=== PATIENT | female | born 1985 ===

== ENCOUNTER 2017-01-21 11:18 | Emergency (ER) | payer SELFPAY ==
[2017-01-21 11:33] VITALS: BP 133/93; PULSE 92; RESP 18; TEMP 97.8; O2SAT 100
[2017-01-21 13:11] LABS: HEMATOCRIT 40.3 % (34.0-47.0); MEAN CELL VOLUME 89.9 fl (81.0-99.0); MEAN CORPUSCULAR HEMOGLOBIN 30.9 pg (27.0-31.0); MEAN CORPUSCULAR HGB CONC 34.3 g/dL (33.0-37.0); RED CELL DISTRIBUTION WIDTH 12.6 % (11.5-14.5); WHITE BLOOD COUNT 4.7 K/uL (4.8-10.8)
[2017-01-21 13:14] LABS: ALB/GLOB RATIO 1.3 (1.0-2.1); ALKALINE PHOSPHATASE 67 U/L (38-126); ALT/SGPT 27 U/L (9-52); AST/SGOT 25 U/L (14-36); BILIRUBIN,TOTAL 0.8 mg/dl (0.2-1.3); BLOOD UREA NITROGEN 11 mg/dl (7-17); CALCIUM 9.7 mg/dL (8.4-10.2); CARBON DIOXIDE 25 mmol/L (22-30); CHLORIDE 103 mmol/L (98-107); GFR AFRICAN-AMERICAN > 60; GLUCOSE,RANDOM 90 mg/dL (65-105); POTASSIUM 3.8 MMOL/L (3.6-5.0); SODIUM 144 mmol/l (132-148); TOTAL PROTEIN 8.1 G/DL (6.3-8.2)
--- NOTE | 2017-01-21 13:59 | US ---
HISTORY: Pelvic pain. Menstrual status: Irregular cycles, LMP 01/11/2017. COMPARISON: None. TECHNIQUE: Transvaginal only. Real -time technique with 2D, duplex and color Doppler FINDINGS: UTERUS: Measures 8.1 x 5.0 cm. Normal in size and appearance. No fibroid or other mass lesion seen. ENDOMETRIUM: Measures 4.5 mm in diameter. No ultrasound findings to suggest gestational sac, fluid, debris, mass or polyp or other pathologic process within the endometrium. CERVIX: No cervical abnormality identified.Incidental finding: Nabothian cysts RIGHT OVARY: Measures 2.3 x 3.5 cm. No solid mass. Normal flow. Multiple subcentimeter follicles. LEFT OVARY: Measures 2.5 x 4.4 cm. No solid mass. Normal flow. Multiple subcentimeter follicles. FREE FLUID: No significant free fluid noted. OTHER FINDINGS: None. IMPRESSION: No significant or acute findings to account for/ related to the clinical presentation.
--- NOTE | 2017-01-21 14:24 | ED PDOC ---
HPI: Abdomen Time Seen by Provider: 01/21/17 11:27 Chief Complaint (Nursing): Abdominal Pain Chief Complaint (Provider): Abdominal pain for 2 weeks, no N/V/D History Per: Patient History/Exam Limitations: no limitations Onset/Duration Of Symptoms: Days Outside of [place] travel?: No Current Symptoms Are (Timing): Still Present Severity: Moderate Pain Scale Rating Of: 5 Location Of Pain/Discomfort: Suprapubic Quality Of Discomfort: Dull Associated Symptoms: denies: Fever, Chills, Nausea, Vomiting, Diarrhea, Loss Of Appetite, Back Pain, Chest Pain, Constipation, Urinary Symptoms Exacerbating Factors: None Alleviating Factors: None Last Bowel Movement: Today Additional Complaint(s): Pt states that she has no discharge, pain during intercourse, etc. Past Medical History Reviewed: Historical Data, Nursing Documentation, Vital Signs Vital Signs: Last Vital Signs Temp 97.8 F 01/21/17 11:25 Pulse 92 H 01/21/17 11:25 Resp 18 01/21/17 11:25 BP 133/93 H 01/21/17 11:25 Pulse Ox 100 01/21/17 11:25 - Medical History PMH: No Chronic Diseases, Gastritis - Surgical History Surgical History: No Surg Hx - Family History Family History: States: Unknown Family Hx - Living Arrangements Living Arrangements: With Family - Social History Current smoker - smoking cessation education provided: No - Home Medications Home Medications: Ambulatory Orders Medication Instructions Recorded Ibuprofen [Motrin Tab] 800 mg PO Q6H PRN #20 tab 01/21/17 - Allergies Allergies/Adverse Reactions: Allergies Allergy/AdvReac Type Severity Reaction Status Date / Time No Known Allergies Allergy Verified 01/21/17 11:25 Review of Systems ROS Statement: Except As Marked, All Systems Reviewed And Found Negative Gastrointestinal: Positive for: Abdominal Pain Physical Exam - Reviewed Nursing Documentation Reviewed: Yes Vital Signs Reviewed: Yes - Physical Exam Appears: Positive for: Well, Non-toxic, No Acute Distress Head Exam: Positive for: ATRAUMATIC, NORMAL INSPECTION, NORMOCEPHALIC Skin: Positive for: Normal Color, Warm, DRY Eye Exam: Positive for: Normal appearance ENT: Positive for: Normal ENT Inspection Neck: Positive for: Normal, Painless ROM Cardiovascular/Chest: Positive for: Regular Rate, Rhythm Respiratory: Positive for: Normal Breath Sounds. Negative for: Accessory Muscle Use Gastrointestinal/Abdominal: Positive for: Normal Exam, Bowel Sounds, Soft. Negative for: Tenderness, Guarding, Rebound Back: Positive for: Normal Inspection Extremity: Positive for: Normal ROM Neurologic/Psych: Positive for: Alert, Oriented - Laboratory Results Result Diagrams: 01/21/17 12:30 01/21/17 12:30 - ECG O2 Sat by Pulse Oximetry: 100 Pulse Ox Interpretation: Normal Disposition - Clinical Impression Clinical Impression: Abdominal pain - Patient ED Disposition Is Patient to be Admitted: No Counseled Patient/Family Regarding: Diagnosis, Need For Followup, Rx Given - Disposition Referrals: [facility] [Outside] Disposition: Routine/Home Disposition Time: 14:18 Condition: GOOD Prescriptions: Ibuprofen [Motrin Tab] 800 mg PO Q6H PRN #20 tab PRN Reason: Pain Instructions: Abdominal Pain (ED) Print Language: VATICAN CITIZEN
== END 2017-01-21 14:28 | disposition home or self-care (01) ==
LOC: H.ER 11:18
DX: R10.9 Unspecified abdominal pain (principal)

== ENCOUNTER 2017-04-30 09:50 | Emergency (ER) | payer OTHER ==
[2017-04-30 09:59] VITALS: BMI 21.1
[2017-04-30 10:01] VITALS: TEMP 98.1
--- NOTE | 2017-04-30 10:16 | ED PDOC ---
HPI: General Adult Time Seen by Provider: 04/30/17 10:15 Chief Complaint (Nursing): Headache Chief Complaint (Provider): chest pain History Per: Patient Additional Complaint(s): 32-year-old female with no past medical history presents to emergency department with five-day history of mid-sternal chest pain. Patient states pain does not radiate and is not associated with shortness of breath or dyspnea on exertion. Denies any coughing or congestion. No fever or chills. Patient also has had mild headache which is resolved by ibuprofen. Patient does have history of migraines. Patient admits to being under a lot of stress lately. She denies any suicidal or homicidal ideation. She rates current headache as a 5 out of 10 and she rates chest pain as 4/10. Patient did not take any meds for pain relief today. She denies any recent travel. Past Medical History Reviewed: Historical Data, Nursing Documentation, Vital Signs Vital Signs: Last Vital Signs Temp 98.1 F 04/30/17 09:58 Pulse 73 04/30/17 09:58 Resp 20 04/30/17 09:58 BP 126/83 04/30/17 09:58 Pulse Ox 100 04/30/17 10:58 - Medical History PMH: Gastritis, Migraine - Surgical History Surgical History: No Surg Hx - Family History Family History: States: No Known Family Hx - Living Arrangements Living Arrangements: With Family - Social History Current smoker - smoking cessation education provided: No Alcohol: None Drugs: Denies - Home Medications Home Medications: Ambulatory Orders Medication Instructions Recorded No Known Home Med 04/30/17 - Allergies Allergies/Adverse Reactions: Allergies Allergy/AdvReac Type Severity Reaction Status Date / Time No Known Allergies Allergy Verified 04/30/17 10:13 Review of Systems ROS Statement: Except As Marked, All Systems Reviewed And Found Negative Constitutional: Negative for: Fever, Chills Cardiovascular: Positive for: Chest Pain (x 5 days). Negative for: Palpitations Respiratory: Negative for: Cough, Shortness of Breath, SOB with Exertion, Wheezing Gastrointestinal: Negative for: Nausea, Vomiting Neurological: Positive for: Headache. Negative for: Dizziness Psych: Positive for: Anxiety. Negative for: Suicidal ideation Physical Exam - Reviewed Nursing Documentation Reviewed: Yes Vital Signs Reviewed: Yes - Physical Exam Appears: Positive for: Well, Non-toxic, No Acute Distress Head Exam: Positive for: ATRAUMATIC, NORMAL INSPECTION Skin: Negative for: Rash Eye Exam: Positive for: Normal appearance, EOMI, PERRL Cardiovascular/Chest: Positive for: Regular Rate, Rhythm Respiratory: Positive for: Normal Breath Sounds. Negative for: Wheezing Gastrointestinal/Abdominal: Positive for: Normal Exam, Soft. Negative for: Tenderness Extremity: Positive for: Normal ROM Neurologic/Psych: Positive for: Alert, Oriented - Laboratory Results Result Diagrams: 04/30/17 11:15 04/30/17 11:15 Urine POC: Negative - ECG Interpretation Of ECG: NSR 69 bpm, no acute finding, reviewed by food writer and ED attending O2 Sat by Pulse Oximetry: 100 Pulse Ox Interpretation: Normal - Other Rad CXR X-Ray: Interpreted by Me, Viewed By Me X-Ray Interpretation: no acute finding Medical Decision Making Medical Decision Makin32 year old with chest pain and headache Plan: EKG CXR CMP CBC Trop PO tylenol and motrin IVF Patient was offered crisis consult but she declined. She denies any suicidal or homicidal ideation. 12:30 pm: Patient states that headache and chest pain have resolved completely. Patient feels much better. Diagnostic test results were reviewed. Glucose on CMP is 43, repeat at bedside was 80. Patient is aware of all diagnostic testing results, all questions answered. Patient was advised to continue with ibuprofen for pain as needed. She was advised to follow up with primary doctor in 2-3 days and is aware she can return to ED at any time if acutely worse. Disposition - Clinical Impression Clinical Impression: Headache, Atypical chest pain - Patient ED Disposition Is Patient to be Admitted: No Counseled Patient/Family Regarding: Studies Performed, Diagnosis, Need For Followup - Disposition Referrals: [facility] [Outside] Disposition: Routine/Home Disposition Time: 12:57 Condition: IMPROVED Additional Instructions: Take 3 ibuprofen every 6hrs for pain relief as needed. Rest and drink plenty of fluids. Follow up with primary care doctor in 2-3 days or return any time if acutely worse. Instructions: General Headache (ED), Chest Pain (ED) Print Language: ALGERIAN Results - Lab Results Lab Results: 04/30/17 04/30/17 11:15 11:15 WBC 5.1 RBC 4.54 Hgb 13.8 Hct 41.3 MCV 90.9 MCH 30.4 MCHC 33.4 RDW 12.6 Plt Count 166 MPV 9.7 Neut % (Auto) 59.1 Lymph % (Auto) 30.4 [place] % (Auto) 7.4 Eos % (Auto) 1.9 Baso % (Auto) 1.2 Neut # 3.0 Lymph # 1.6 [place] # 0.4 Eos # 0.1 Baso # 0.1 Sodium 143 Potassium 3.7 Chloride 106 Carbon Dioxide 25 Anion Gap 15 BUN 17 Creatinine 0.6 L Est GFR ( Amer) > 60 Est GFR (Non-Af Amer) > 60 Random Glucose 43 L Calcium 9.3 Total Bilirubin 0.6 AST 28 ALT 40 Alkaline Phosphatase 58 Troponin I < 0.0120 Total Protein 8.0 Albumin 4.6 Globulin 3.4 Albumin/Globulin Ratio 1.3
[2017-04-30] MEDS ORDERED: Sodium Chloride 0.9% 1,000 ML IV STA (10:53)
[2017-04-30 11:32] LABS: BASO # 0.1 K/uL (0.0-0.2); BASO % 1.2 % (0.0-2.0); EOS # 0.1 K/uL (0.0-0.7); EOS % 1.9 % (0.0-4.0); HEMATOCRIT 41.3 % (34.0-47.0); LYMPH # 1.6 K/uL (1.0-4.3); LYMPH % 30.4 % (20.0-40.0); MEAN CELL VOLUME 90.9 fl (81.0-99.0); MEAN CORPUSCULAR HEMOGLOBIN 30.4 pg (27.0-31.0); MEAN CORPUSCULAR HGB CONC 33.4 g/dL (33.0-37.0); MEAN PLATELET VOLUME 9.7 fl (7.2-11.7); MONO # 0.4 K/uL (0.0-0.8); MONO % 7.4 % (0.0-10.0); NEUT % 59.1 % (50.0-75.0); NRBC % 0.1 % (0.0-0.0); RED CELL DISTRIBUTION WIDTH 12.6 % (11.5-14.5); WHITE BLOOD COUNT 5.1 K/uL (4.8-10.8)
[2017-04-30 11:53] LABS: ALB/GLOB RATIO 1.3 (1.0-2.1); ALKALINE PHOSPHATASE 58 U/L (38-126); ALT/SGPT 40 U/L (9-52); AST/SGOT 28 U/L (14-36); BILIRUBIN,TOTAL 0.6 mg/dl (0.2-1.3); BLOOD UREA NITROGEN 17 mg/dl (7-17); CALCIUM 9.3 mg/dL (8.4-10.2); CARBON DIOXIDE 25 mmol/L (22-30); CHLORIDE 106 mmol/L (98-107); GFR AFRICAN-AMERICAN > 60; GLUCOSE,RANDOM 43 mg/dL (65-105); POTASSIUM 3.7 MMOL/L (3.6-5.0); SODIUM 143 mmol/l (132-148)
--- NOTE | 2017-04-30 13:13 | RAD ---
HISTORY: clearance COMPARISON: 02/19/2011 FINDINGS: LUNGS: No active pulmonary disease. PLEURA: No significant pleural effusion identified, no pneumothorax apparent. CARDIOVASCULAR: Normal. OSSEOUS STRUCTURES: No significant abnormalities. VISUALIZED UPPER ABDOMEN: Normal. OTHER FINDINGS: None. IMPRESSION: No active disease.
[2017-04-30 13:24] VITALS: BP 106/61; PULSE 79; RESP 18; O2SAT 99
--- NOTE | 2017-04-30 16:58 | CARD ---
APPROVED REPORT EKG Measurement Heart [id number] <Conclusion> Normal sinus rhythm with sinus arrhythmia Normal ECG
== END 2017-04-30 13:24 | disposition home or self-care (01) ==
LOC: H.ER 09:50
DX: R51 Headache (principal); R07.89 Other chest pain

== ENCOUNTER 2018-06-20 10:08 | Emergency (ER) | payer OTHER ==
[2018-06-20 10:18] VITALS: BMI 22.3
--- NOTE | 2018-06-20 10:50 | ED PDOC ---
HPI: Abdomen Time Seen by Provider: 06/20/18 10:27 Chief Complaint (Nursing): Abdominal Pain Chief Complaint (Provider): abd pain History Per: Patient Additional Complaint(s): 33-year-old female presents with generalized abdominal pain ongoing for about 1 week. No associated nausea, vomiting, diarrhea or constipation. Patient denies any dysuria, vaginal bleeding or vaginal discharge. She has history of irregular menses and thinks that she may be getting her period but is also concerned about possible . Patient also reports history of gastritis but states that she was started on Nexium 4 days ago which seems to be helping. PMD: Clinic in [place] Past Medical History Reviewed: Historical Data, Nursing Documentation, Vital Signs Vital Signs: Last Vital Signs Temp 98.2 F 06/20/18 10:16 Pulse 66 06/20/18 10:16 Resp 20 06/20/18 10:16 BP 112/69 06/20/18 10:16 Pulse Ox 100 06/20/18 10:50 - Medical History PMH: Gastritis, Migraine - Surgical History Surgical History: No Surg Hx - Family History Family History: States: No Known Family Hx - Living Arrangements Living Arrangements: With Family - Social History Current smoker - smoking cessation education provided: No Alcohol: None Drugs: Denies - Home Medications Home Medications: Ambulatory Orders Medication Instructions Recorded No Known Home Med 04/30/17 - Allergies Allergies/Adverse Reactions: Allergies Allergy/AdvReac Type Severity Reaction Status Date / Time No Known Allergies Allergy Verified 04/30/17 10:13 Review of Systems ROS Statement: Except As Marked, All Systems Reviewed And Found Negative Constitutional: Negative for: Fever, Chills Cardiovascular: Negative for: Chest Pain Respiratory: Negative for: Cough Gastrointestinal: Positive for: Abdominal Pain. Negative for: Nausea, Vomiting , Diarrhea Genitourinary Female: Negative for: Dysuria, Frequency, Vaginal Discharge, Vaginal Bleeding Physical Exam - Reviewed Nursing Documentation Reviewed: Yes Vital Signs Reviewed: Yes - Physical Exam Appears: Positive for: Well, Non-toxic, No Acute Distress Skin: Positive for: Normal Color. Negative for: Rash Eye Exam: Positive for: Normal appearance Cardiovascular/Chest: Positive for: Regular Rate, Rhythm Respiratory: Positive for: Normal Breath Sounds. Negative for: Wheezing, Respiratory Distress Gastrointestinal/Abdominal: Positive for: Soft. Negative for: Tenderness, Distended, Guarding, Rebound Back: Negative for: L CVA Tenderness, R CVA Tenderness Extremity: Positive for: Normal ROM Neurologic/Psych: Positive for: Alert, Oriented - Laboratory Results Urine POC: Negative Urine dip results: Negative for: Leukocyte Esterase, Blood, Nitrate, Ketones, Glucose, Bilirubin, Protein - ECG O2 Sat by Pulse Oximetry: 100 Pulse Ox Interpretation: Normal Medical Decision Making Medical Decision Makin-year-old female with generalized abdominal pain. Abdominal exam is benign. Patient is afebrile, well appearing, in no distress. Plan: Urine dip Urine preg Urine culture sent CHL/GC culture sent Patient with generalized abdominal pain ongoing for 1 week. She has history of gastritis and irregular menses. Patient was instructed to follow-up women's clinic and continue with Nexium as prescribed. Patient made aware she can return to emergency room any time for acutely worsening symptoms. Disposition - Clinical Impression Clinical Impression: Abdominal pain in female, Gastritis, Irregular menses - Patient ED Disposition Is Patient to be Admitted: No Counseled Patient/Family Regarding: Studies Performed, Diagnosis, Need For Followup - Disposition [facility]errals[facility] [[facility]] Disposition: Routine/Home Disposition Time: 11:12 Condition: STABLE Additional Instructions: Continue with Nexium as prescribed. Contact women's clinic to arrange for appointment for further evaluation of irregular menstruation. 10 to emergency room any time if acutely worse. Instructions: Gastritis, Stomach Ache and Stomach Upset, Absent or Irregular Periods, Ulcer and Gastritis Diet Forms: [employer] (Yakut)
[2018-06-20 11:29] VITALS: BP 127/78; PULSE 78; RESP 19; TEMP 97; O2SAT 98
== END 2018-06-20 11:31 | disposition home or self-care (01) ==
LOC: H.ER 10:08
DX: K29.70 Gastritis, unspecified, without bleeding (principal); N92.6 Irregular menstruation, unspecified

== ENCOUNTER 2018-06-23 01:21 | Emergency (ER) | payer OTHER ==
[2018-06-23 01:21] VITALS: BMI 22.3
[2018-06-23 01:55] VITALS: TEMP 98.5
[2018-06-23] MEDS ORDERED: Sodium Chloride 0.9% 1,000 ML IV STA (02:46)
[2018-06-23] MEDS ORDERED: Iohexol 240 (50 ml) ONE (02:56)
[2018-06-23 03:24] LABS: BASO % 0.6 % (0.0-2.0); EOS # 0.2 K/uL (0.0-0.7); EOS % 2.2 % (0.0-4.0); HEMOGLOBIN 13.3 g/dL (12.0-16.0); LYMPH # 1.4 K/uL (1.0-4.3); LYMPH % 19.2 % (20.0-40.0); MEAN CELL VOLUME 87.8 fl (81.0-99.0); MEAN CORPUSCULAR HEMOGLOBIN 31.5 pg (27.0-31.0); MEAN CORPUSCULAR HGB CONC 35.9 g/dL (33.0-37.0); MEAN PLATELET VOLUME 10.2 fl (7.2-11.7); MONO # 0.6 K/uL (0.0-0.8); MONO % 8.1 % (0.0-10.0); NEUT # 5.1 K/uL (1.8-7.0); NEUT % 69.9 % (50.0-75.0); RBC 4.21 Mil/uL (3.80-5.20); RED CELL DISTRIBUTION WIDTH 12.8 % (11.5-14.5); WHITE BLOOD COUNT 7.3 K/uL (4.8-10.8)
[2018-06-23 03:33] LABS: ALB/GLOB RATIO 1.3 (1.0-2.1)
[2018-06-23 03:42] LABS: ALBUMIN 4.2 g/dL (3.5-5.0); ALT/SGPT 21 U/L (9-52); AST/SGOT 26 U/L (14-36); BLOOD UREA NITROGEN 10 mg/dl (7-17); CALCIUM 9.1 mg/dL (8.4-10.2); GFR AFRICAN-AMERICAN > 60; GFR NON-AFRICAN AMERICAN > 60
--- NOTE | 2018-06-23 04:10 | ED PDOC ---
HPI: Abdomen Time Seen by Provider: 06/23/18 02:09 Chief Complaint (Nursing): Abdominal Pain Chief Complaint (Provider): Abdominal Pain History Per: Patient History/Exam Limitations: no limitations Onset/Duration Of Symptoms: Days (x5) Current Symptoms Are (Timing): Still Present Additional Complaint(s): 33 year old female presents to the ED for right lower quadrant abdominal pain for five days. Patient states she was seen here four days ago for similar pain in her lower abdomen, and the pain came back after discharge. She is expressing concerns about her appendix. Otherwise: (-) nausea, (-) vomiting, (-) diarrhea, (-) urinary symptoms, (-) fever, (-) melena, (-) hematochezia, (-) vaginal d/c, (-) vaginal bleeding. Has no history of prior abdominal surgery. PMD: [facility] Past Medical History Reviewed: Historical Data, Nursing Documentation, Vital Signs Vital Signs: Last Vital Signs Temp 98.5 F 06/23/18 09:33 Pulse 72 06/23/18 09:33 Resp 18 06/23/18 09:33 BP 126/86 06/23/18 09:33 Pulse Ox 97 06/23/18 10:49 - Medical History PMH: Gastritis, Migraine - Surgical History Surgical History: No Surg Hx - Family History Family History: States: Unknown Family Hx - Social History Current smoker - smoking cessation education provided: No Alcohol: None Drugs: Denies - Home Medications Home Medications: Ambulatory Orders Medication Instructions Recorded Naproxen [Naprosyn] 500 mg PO Q12H #20 tab 06/23/18 - Allergies Allergies/Adverse Reactions: Allergies Allergy/AdvReac Type Severity Reaction Status Date / Time No Known Allergies Allergy Verified 04/30/17 10:13 Review of Systems ROS Statement: Except As Marked, All Systems Reviewed And Found Negative Constitutional: Negative for: Fever Gastrointestinal: Positive for: Abdominal Pain (RLQ). Negative for: Nausea, Vomiting, Diarrhea, Melena, Hematochezia Genitourinary Female: Negative for: Dysuria, Frequency, Incontinence Physical Exam - Reviewed Nursing Documentation Reviewed: Yes Vital Signs Reviewed: Yes - Physical Exam Comments: GENERAL APPEARANCE: Patient is awake, alert, oriented x 3, in no acute distress. SKIN: Warm, dry; (-) cyanosis. EYES: (-) conjunctival pallor, (-) scleral icterus. ENMT: Mucous membranes moist. NECK: (-) tenderness, (-) stiffness, (-) lymphadenopathy. CHEST AND RESPIRATORY: (-) rales, (-) rhonchi, (-) wheezes; breath sounds equal bilaterally. HEART AND CARDIOVASCULAR: (-) irregularity; (-) murmur, (-) gallop. ABDOMEN AND GI: (-) distention. Bowel sounds active; mild tenderness in RLQ. ( -) guarding, (-) rebound, (-) palpable masses, (-) CVA tenderness. EXTREMITIES: (-) deformity, (-) edema, (+) distal pulses. NEURO AND PSYCH: Mental status as above; (-) focal findings. - Laboratory Results Result Diagrams: 06/23/18 03:00 06/23/18 03:00 - ECG O2 Sat by Pulse Oximetry: 100 (RA) Pulse Ox Interpretation: Normal Medical Decision Making Medical Decision Making: Time: 02:46 Initial Impression: abdominal pain Initial Plan: --Abd/Pelvis CT PO and IV contrast --CMP --Lipase --Urine --Urine dipstick --CBC with differential --Normal saline IV --Toradol 30 mg IVP 0400 Labs reviewed : wnl, uhcg (-), udip (-) On re-evaluation, patient reports pain is controlled, denies any nausea. On exam , patient remains AAOx3, in no acute distress. Patient tolerating po contrast. 0600 Patient reports improvement of pain, has no other complaints at this time. CT being read, results still pending. Scribe Attestation: Documented by Maia Jackson, acting as a scribe for Nazia Scott PA-C. Provider Scribe Attestation: All medical record entries made by the Scribe were at my direction and personally dictated by me. I have reviewed the chart and agree that the record accurately reflects my personal performance of the history, physical exam, medical decision making, and the department course for this patient. I have also personally directed, reviewed, and agree with the discharge instructions and disposition. Disposition - Clinical Impression Clinical Impression: Abdominal pain, Ovarian cyst Counseled Patient/Family Regarding: Studies Performed, Diagnosis - Disposition [facility] [[facility]] Disposition Time: 06:00 Condition: FAIR Prescriptions: Naproxen [Naprosyn] 500 mg PO Q12H #20 tab Instructions: Ovarian Cysts Forms: [employer] [facility] (Ivorian) Print Language: WELSH
[2018-06-23] MEDS ORDERED: Iohexol 300 100 ML IJ ONE (04:54)
[2018-06-23] MEDS ORDERED: Sodium Chloride 0.9% 50 ML IV ONE (04:54)
[2018-06-23 06:44] LABS: LIPASE < 100 U/L (23-300)
[2018-06-23 09:34] VITALS: BP 126/86; PULSE 72; RESP 18
--- NOTE | 2018-06-23 10:49 | ED PDOC ---
- Laboratory Results Result Diagrams: 06/23/18 03:00 06/23/18 03:00 - ECG O2 Sat by Pulse Oximetry: 97 - Progress Re-evaluation Time: 10:47 Condition: Improved Disposition - Clinical Impression Clinical Impression: Abdominal pain, Ovarian cyst - POA Present On Arrival: None - Disposition [facility]errals: [facility] [[facility]] Disposition: Routine/Home Disposition Time: 10:48 Condition: FAIR Prescriptions: Naproxen [Naprosyn] 500 mg PO Q12H #20 tab Instructions: Ovarian Cysts Forms: [facility] (Irish) Print Language: SAMI
--- NOTE | 2018-06-23 11:34 | CT ---
Date of service: 06/23/2018 PROCEDURE: CT Abdomen and Pelvis with contrast HISTORY: RLQ pain COMPARISON: 07/24/2014. CT abdomen and pelvis. TECHNIQUE: Contrast dose: 90 cc Omnipaque 300 Radiation dose: Total exam DLP = 275.68 mGy-cm. This CT exam was performed using one or more of the following dose reduction techniques: Automated exposure control, adjustment of the mA and/or kV according to patient size, and/or use of iterative reconstruction technique. FINDINGS: LOWER THORAX: Unremarkable. LIVER: Unremarkable. No gross lesion or ductal dilatation. GALLBLADDER AND BILE DUCTS: Unremarkable. PANCREAS: Unremarkable. No gross lesion or ductal dilatation. SPLEEN: Unremarkable. ADRENALS: Unremarkable. No mass. KIDNEYS AND URETERS: Unremarkable. No hydronephrosis. No solid mass. VASCULATURE: Unremarkable. No aortic aneurysm. BOWEL: Unremarkable. No obstruction. No gross mural thickening. APPENDIX: Normal appendix. PERITONEUM: Unremarkable. No free fluid. No free air. LYMPH NODES: Unremarkable. No enlarged lymph nodes. BLADDER: Unremarkable. REPRODUCTIVE: Pelvic cyst 5.8 x 6.7 cm. Finding confirmed as adnexal in origin on follow-up pelvic ultrasound. BONES: No acute fracture. OTHER FINDINGS: None. IMPRESSION: Pelvic/right adnexal cyst. Otherwise, No significant or acute findings to account for/ related to the clinical presentation. Concordant results (preliminary interpretation) provided by [email or web address]. Procedure Completed: 05:14. Preliminary ([facility]) Report: Dictated and Authenticated: 06:21. Final Interpretation: 11:32. June 23, 2018.
--- NOTE | 2018-06-23 11:43 | US ---
Date of service: 06/23/2018 HISTORY: complex adnexal cyst LMP 2 months ago. COMPARISON: 01/21/2017 pelvic ultrasound. June 23, 2018. CT abdomen and pelvis TECHNIQUE: Transabdominal, transvaginal. Real -time technique with 2D, duplex and color Doppler. FINDINGS: UTERUS: Measures 3.7 x 6.5 x 10.6 cm. Normal in size and appearance. No fibroid or other mass lesion seen. ENDOMETRIUM: Measures 6.8 mm in diameter. No ultrasound findings to suggest gestational sac, fluid, debris, mass or polyp or other pathologic process within the endometrium. CERVIX: No cervical abnormality identified. RIGHT OVARY: Measures 2.3 x 4.3 x 3.5 cm. No solid mass. Normal flow. Simple cyst 4.5 x 4.8 x 6.5 LEFT OVARY: Measures 2 x 2.2 x 4 cm. No solid mass. Normal flow. Multiple subcentimeter follicles. FREE FLUID: No significant free fluid noted. OTHER FINDINGS: None. IMPRESSION: Simple cyst right adnexa. This corresponds to findings on recent CT scan. Otherwise unremarkable study.
[2018-06-24 14:27] VITALS: O2SAT 100
== END 2018-06-23 10:59 | disposition home or self-care (01) ==
LOC: H.ER 01:21
DX: N83.201 Unspecified ovarian cyst, right side (principal); R10.2 Pelvic and perineal pain
CPT/HCPCS: 74177; 76830; 76856; 80053; 81025; 83690; 85025; 96374; 99285; J1885; J7030; Q9967

== ENCOUNTER 2019-01-25 18:31 | Emergency (ER) | payer SELFPAY ==
[2019-01-25 18:32] VITALS: BMI 22.3
[2019-01-25 19:05] VITALS: PULSE 94; RESP 16; TEMP 98.5; O2SAT 98
--- NOTE | 2019-01-25 20:27 | ED PDOC ---
HPI: CCC, URI, Sore Throat Time Seen by Provider: 01/25/19 19:16 Chief Complaint (Nursing): ENT Problem Chief Complaint (Provider): ENT Problem History Per: Patient History/Exam Limitations: no limitations Onset/Duration Of Symptoms: Days Current Symptoms Are (Timing): Still Present Location Of Pain: Throat Sick Contacts (Context): Family Member(s) Additional Complaint(s): 33 y/o female with no significant PMHx presents to the ED for evaluation of a sore throat, onset two days ago. Patient reports sore throat is associated with right sided neck swelling and right eye redness with a discharge. Patient states pain in throat is worse with swallowing. Otherwise, patient denies taking any medications for symptom relief and fevers. Of note, patient has had positive sick contacts with son who was diagnosed with strep and flu. Patient additionally reports of developing a non-productive cough associated with mild nasal congestion. PMD: [place]. Past Medical History Reviewed: Historical Data, Nursing Documentation, Vital Signs Vital Signs: Last Vital Signs Temp 98.5 F 01/25/19 19:02 Pulse 94 H 01/25/19 19:02 Resp 16 01/25/19 19:02 BP Pulse Ox 98 01/25/19 19:02 - Medical History PMH: Gastritis, Migraine - Surgical History Surgical History: No Surg Hx - Family History Family History: States: No Known Family Hx - Social History Current smoker - smoking cessation education provided: No - Home Medications Home Medications: Ambulatory Orders Medication Instructions Recorded Naproxen [Naprosyn] 500 mg PO Q12H #20 tab 06/23/18 Amoxicillin/Clavulanate [Augmentin 1 tab PO BID #14 tab 01/25/19 875 MG-125 MG] Ibuprofen [Motrin Tab] 600 mg PO Q8 PRN #30 tab 01/25/19 Polymyxin/Trimethoprim Sulfate 2 drop OD TID #10 bottle 01/25/19 [Polytrim Ophth Soln] - Allergies Allergies/Adverse Reactions: Allergies Allergy/AdvReac Type Severity Reaction Status Date / Time No Known Allergies Allergy Verified 04/30/17 10:13 Review of Systems ROS Statement: Except As Marked, All Systems Reviewed And Found Negative (as per HPI) Constitutional: Negative for: Fever Eyes: Positive for: Redness (right eye redness with discharge) ENT: Positive for: Nose Congestion, Throat Pain Respiratory: Positive for: Cough Musculoskeletal: Positive for: Neck Pain (RIGHT SIDED NECK SWELLING) Physical Exam - Reviewed Nursing Documentation Reviewed: Yes Vital Signs Reviewed: Yes - Physical Exam Appears: Positive for: No Acute Distress Head Exam: Positive for: ATRAUMATIC, NORMOCEPHALIC Skin: Positive for: Warm, Dry Eye Exam: Positive for: EOMI, PERRL, Conjunctival injection (red with no discharge and tears noted. ) ENT: Positive for: Pharyngeal Erythema (mild ). Negative for: Tonsillar Exudate Neck: Positive for: Painless ROM, Supple Cardiovascular/Chest: Positive for: Regular Rate, Rhythm. Negative for: Murmur Respiratory: Positive for: Normal Breath Sounds. Negative for: Respiratory Distress Gastrointestinal/Abdominal: Positive for: Soft. Negative for: Tenderness Back: Positive for: Normal Inspection. Negative for: Muscle Spasm Extremity: Positive for: Normal ROM. Negative for: Deformity Lymphatic: Positive for: Adenopathy (large right anterior lymphadenopathy.) Neurologic/Psych: Positive for: Alert. Negative for: Motor/Sensory Deficits - ECG O2 Sat by Pulse Oximetry: 98 (RA) Pulse Ox Interpretation: Normal Medical Decision Making Medical Decision Making: Time: 2012 Impression: Pharyngitis with recent Strep exposure, possible conjunctivitis Plan: -- Will prescribe antibiotics -- Motrin 600 mg PO -- Tylenol 976 mg PO Scribe Attestation: Documented by Rosalva Butler, acting as a scribe for Margarita Patel MD. Provider Scribe Attestation: All medical record entries made by the Scribe were at my direction and personally dictated by me. I have reviewed the chart and agree that the record accurately reflects my personal performance of the history, physical exam, medical decision making, and the department course for this patient. I have also personally directed, reviewed, and agree with the discharge instructions and disposition. Disposition - Clinical Impression Clinical Impression: Pharyngitis, Lymphadenopathy of right cervical region Counseled Patient/Family Regarding: Diagnosis, Need For Followup, Rx Given - Disposition Referrals: Rickie Vance [Outside] Disposition: Routine/Home Disposition Time: 20:00 Condition: STABLE Additional Instructions: [facility]ISITA [facility] EN 2-3 [facility] A [facility] Prescriptions: Amoxicillin/Clavulanate [Augmentin 875 MG-125 MG] 1 tab PO BID #14 tab Ibuprofen [Motrin Tab] 600 mg PO Q8 PRN #30 tab PRN Reason: Pain, Moderate (4-7) Polymyxin/Trimethoprim Sulfate [Polytrim Ophth Soln] 2 drop OD TID #10 bottle Instructions: Sore Throat, Adult (DC), Conjunctivitis ([place]) (DC), Lymphadenitis (DC) Forms: [facility] ED School/Work Excuse Print Language: GEORGIAN
== END 2019-01-25 21:13 | disposition home or self-care (01) ==
LOC: H.ER 18:31
DX: J02.9 Acute pharyngitis, unspecified (principal); R59.1 Generalized enlarged lymph nodes

== ENCOUNTER 2019-03-12 17:01 | Emergency (ER) | payer OTHER ==
[2019-03-12 17:14] VITALS: TEMP 97.9; BMI 23.8
[2019-03-12] MEDS ORDERED: DiphenhydrAMINE 50 mg/ml Inj IVP STA (18:50)
[2019-03-12] MEDS ORDERED: Sodium Chloride 0.9% 1,000 ML IV STA (18:50)
[2019-03-12 19:22] LABS: BASO # 0.1 K/uL (0.0-0.2); BASO % 1.1 % (0.0-2.0); EOS # 0.6 K/uL (0.0-0.7); EOS % 8.4 % (0.0-4.0); HEMOGLOBIN 13.1 g/dL (12.0-16.0); LYMPH # 1.9 K/uL (1.0-4.3); LYMPH % 28.4 % (20.0-40.0); MEAN CELL VOLUME 90.5 fl (81.0-99.0); MEAN CORPUSCULAR HEMOGLOBIN 31.1 pg (27.0-31.0); MEAN CORPUSCULAR HGB CONC 34.3 g/dL (33.0-37.0); MEAN PLATELET VOLUME 9.5 fl (7.2-11.7); MONO # 0.4 K/uL (0.0-0.8); MONO % 6.6 % (0.0-10.0); NEUT # 3.6 K/uL (1.8-7.0); NEUT % 55.5 % (50.0-75.0); NRBC % 0.2 % (0.0-0.0); RBC 4.2 Mil/uL (3.80-5.20); RED CELL DISTRIBUTION WIDTH 13.1 % (11.5-14.5); WHITE BLOOD COUNT 6.6 K/uL (4.8-10.8)
[2019-03-12 19:36] LABS: ALB/GLOB RATIO 1.2 (1.0-2.1); ALBUMIN 4.1 g/dL (3.5-5.0); ALT/SGPT 21 U/L (9-52); AST/SGOT 25 U/L (14-36); BLOOD UREA NITROGEN 9 mg/dl (7-17); CALCIUM 8.8 mg/dL (8.4-10.2); GFR NON-AFRICAN AMERICAN > 60
--- NOTE | 2019-03-12 19:40 | ED PDOC ---
HPI: Headache Time Seen by Provider: 03/12/19 17:39 Chief Complaint (Nursing): Headache Chief Complaint (Provider): Headache History Per: Patient History/Exam Limitations: no limitations Onset/Duration Of Symptoms: Days (X2 weeks) Current Symptoms Are (Timing): Still Present Additional Complaint(s): 33 year old female with a past medical history of migraines presents to the ED with a headache onset X2 weeks ago. Patient states that her headaches have started X2 weeks ago but have become more severe in the last two days. Patient states that her headaches are pressure like, and diffused. She reports that they are similar to her previous headaches. Patient was diagnosed with migraines in the past. Patient has been taking Ibuprofen with minimal relief. Patient states that she has been under a lot of stress due to moving out of her apartment quickly. Patient states that her left eyelid has been twitching. Patient denies focal weakness, numbness, difficulty with speech, difficulty with gait, and blurry vision. PMD: None provided Past Medical History Reviewed: Historical Data, Nursing Documentation, Vital Signs Vital Signs: Last Vital Signs Temp 97.9 F 03/12/19 17:13 Pulse 73 03/12/19 17:13 Resp 18 03/12/19 17:13 BP 149/100 H 03/12/19 17:13 Pulse Ox 99 03/12/19 17:13 DERECK Report Viewed: Yes - Medical History PMH: Gastritis, Migraine - Surgical History Surgical History: No Surg Hx - Family History Family History: States: No Known Family Hx - Social History Current smoker - smoking cessation education provided: No Alcohol: None Drugs: Denies - Home Medications Home Medications: Ambulatory Orders Medication Instructions Recorded Naproxen [Naprosyn] 500 mg PO Q12H #20 tab 06/23/18 Amoxicillin/Clavulanate [Augmentin 1 tab PO BID #14 tab 01/25/19 875 MG-125 MG] Ibuprofen [Motrin Tab] 600 mg PO Q8 PRN #30 tab 01/25/19 Polymyxin/Trimethoprim Sulfate 2 drop OD TID #10 bottle 01/25/19 [Polytrim Ophth Soln] Naproxen [Naprosyn] 1 tab PO BID PRN #30 tab 03/12/19 - Allergies Allergies/Adverse Reactions: Allergies Allergy/AdvReac Type Severity Reaction Status Date / Time No Known Allergies Allergy Verified 03/12/19 17:11 Review of Systems ROS Statement: Except As Marked, All Systems Reviewed And Found Negative Eyes: Positive for: Other (left eyelid twitching). Negative for: Vision Change (blurry vision) Neurological: Positive for: Headache (diffused, pressure like ). Negative for: Weakness (focal ), Numbness, Change in Speech, Other (difficulty with gait) Physical Exam - Reviewed Nursing Documentation Reviewed: Yes Vital Signs Reviewed: Yes - Physical Exam Appears: Positive for: Well, In Acute Distress (mild painful distress) Head Exam: Positive for: ATRAUMATIC, NORMOCEPHALIC Skin: Positive for: Warm, Dry Eye Exam: Positive for: EOMI, PERRL ENT: Negative for: Pharyngeal Erythema, Tonsillar Exudate Neck: Positive for: Painless ROM, Supple Cardiovascular/Chest: Positive for: Regular Rate, Rhythm. Negative for: Murmur Respiratory: Positive for: Normal Breath Sounds. Negative for: Respiratory Distress Gastrointestinal/Abdominal: Positive for: Soft. Negative for: Tenderness Back: Positive for: Normal Inspection. Negative for: Decreased ROM Extremity: Positive for: Normal ROM. Negative for: Deformity Lymphatic: Negative for: Adenopathy Neurological/Psych: Positive for: Awake, Alert, Oriented (X3), Other (normal speech). Negative for: Motor/Sensory Deficits, Facial Droop - Laboratory Results Result Diagrams: 03/12/19 19:19 03/12/19 19:19 - ECG O2 Sat by Pulse Oximetry: 99 (RAQ) Pulse Ox Interpretation: Normal - Progress Re-evaluation Time: 20:00 Condition: Improved Medical Decision Making Medical Decision Making: Time: 17:39 Initial Impression: Headache Differential includes migraine, stress, anxiety and dehydration Plan: -complete metabolic panel -Ed Urine dipstick -ED Urine -CBC with differential -Benadryl 25 mg IVP -Sodium chloride 0.9% 1,000 ml IV -Reglan 10 mg IVP -Toradol 15 mg IM -Tylenol 975 mg PO -IV insertion -re-evaluate Labs unremarkable. Pt feels better. DW pt findings. Stable for discharge. Scribe Attestation: Documented by Zelalem Rollins, acting as a scribe for Margarita Patel MD Provider Scribe Attestation: All medical record entries made by the Scribe were at my direction and personally dictated by me. I have reviewed the chart and agree that the record accurately reflects my personal performance of the history, physical exam, medical decision making, and the department course for this patient. I have also personally directed, reviewed, and agree with the discharge instructions and disposition Disposition - Clinical Impression Clinical Impression: Headache Counseled Patient/Family Regarding: Studies Performed, Diagnosis - Disposition Disposition: Routine/Home Disposition Time: 20:00 Condition: IMPROVED Prescriptions: Naproxen [Naprosyn] 1 tab PO BID PRN #30 tab PRN Reason: Headache Instructions: Migraine Headache (DC), Stress Print Language: MONGOLIAN
[2019-03-12] MEDS ORDERED: DiphenhydrAMINE 50 mg/ml Inj ONE (19:44)
[2019-03-12 20:47] VITALS: BP 124/76; PULSE 79; RESP 16; O2SAT 100
== END 2019-03-12 20:46 | disposition home or self-care (01) ==
LOC: H.ER 17:01
DX: G43.909 Migraine, unspecified, not intractable, without status migrainosus (principal)
CPT/HCPCS: 80053; 81025; 85025; 96372; 96374; 96375; 99285; J1200; J1885; J2765; J7030